=== PATIENT | male | born 1945 | race African-American/Black ===

== ENCOUNTER 2017-03-10 13:01 | Emergency (ER) | payer MEDICARE, MEDICAID ==
[~2017-03-10] VITALS: Ht 167.6 cm; Wt 75.0 kg
[~2017-03-10 13:01] MED LIST: AMLO5TAB4 PO; ASPI81TA2 PO; ATOR10TA69 PO; CLON0.1T14 PO; LISI-604 PO
[2017-03-10] MEDS ORDERED: HYDROCODONE/ACETAMINOPHEN 5/325MG TABLET PO ONE (15:45)
[2017-03-10 16:04] LABS: CLARITY URINE CLOUDY (CLEAR); COLOR URINE DARK YELLOW (YELLOW); GLUCOSE URINE NEGATIVE (NEGATIVE); KETONES URINE TRACE (NEGATIVE); LEUKOCYTE ESTERASE URINE 2+ (NEGATIVE); NITRITE URINE NEGATIVE (NEGATIVE); OCCULT BLOOD URINE 2+ (NEGATIVE); PH URINE 5.5 (4.5-8.0); PROTEIN URINE 2+ (NEGATIVE); SPECIFIC GRAVITY URINE 1.024 (1.005-1.030)
[2017-03-10 16:08] LABS: BASOPHILS % 0.5 % (0.0-2.0); EOSINOPHILS % 0.5 % (0.0-5.0); HEMATOCRIT. 50.7 % (42.0-52.0); HEMOGLOBIN. 16.8 g/dL (14.0-18.0); LYMPHOCYTES % 8.9 % (20.0-50.0); MEAN CORPUSCULAR VOLUME 90.8 fL (80.0-94.0); MEAN PLATELET VOLUME 8.4 fl (7.4-10.4); MONOCYTES % 6.7 % (2.0-8.0); NEUTROPHILS % 83.4 % (40.0-76.0); PLATELET 396 x1000/uL (130-400); RED BLOOD CELL COUNT 5.59 mill/uL (4.7-6.1); RED CELL DISTRIBUTION WIDTH 14.4 % (11.6-14.6)
[2017-03-10 16:12] LABS: CHLORIDE 103 mEq/L (98-107)
[2017-03-10 16:18] LABS: CARBON DIOXIDE 29 mEq/L (21-32)
[2017-03-10] MEDS ORDERED: AZITHROMYCIN 500 MG in DEXT 5% WATER 250 ML IV STA (17:12)
[2017-03-10] MEDS ORDERED: DOXYCYCLINE HYCLATE 100 MG/VIAL IV ONE (17:15)
[2017-03-10] MEDS ORDERED: CEFTRIAXONE 1 G PREMIX 50 ML IV ONE (17:15)
[2017-03-10] MEDS: DOXYCYCLINE 100MG in DEXTROSE 5% WATER 100ML IV NR ×2 (18:30→18:35)
[2017-03-10 21:15] VITALS: BP 128/88
[2017-03-14 04:44] LABS: CHLAMYDIA TRACHOMATIS NAA Negative (Negative); NEISSERIA GONORRHOEAE NAA Negative (Negative)
== END 2017-03-10 21:31 | disposition short-term general hospital (02) ==
LOC: ER 13:03
DX: N45.3 Epididymo-orchitis (principal); N45.4 Abscess of epididymis or testis; N43.3 Hydrocele, unspecified; N50.89 Other specified disorders of the male genital organs; I25.10 Atherosclerotic heart disease of native coronary artery without angina pectoris; I10 Essential (primary) hypertension; E78.00 Pure hypercholesterolemia, unspecified; F17.210 Nicotine dependence, cigarettes, uncomplicated; Z79.82 Long term (current) use of aspirin
CPT/HCPCS: 36415; 76870; 80048; 81001; 85025; 87491; 87591; 93976; 96365; 96367; 99285; J0456; J0696; J3490; J7030; J7060

== ENCOUNTER 2017-04-09 10:56 | Emergency (ER) | payer MEDICARE, MEDICAID ==
[~2017-04-09] VITALS: Ht 167.6 cm; Wt 75.0 kg
[~2017-04-09 10:56] MED LIST changes: +ASPI-1160 PO; -ASPI81TA2 PO
[2017-04-09] MEDS ORDERED: LEVOFLOXACIN 250MG TABLET PO ONE (11:30)
[2017-04-09 11:52] VITALS: BP 156/67
== END 2017-04-09 17:39 | disposition home or self-care (01) ==
LOC: ER 16:36
DX: N45.3 Epididymo-orchitis (principal); F17.200 Nicotine dependence, unspecified, uncomplicated; I10 Essential (primary) hypertension; E78.00 Pure hypercholesterolemia, unspecified; I51.9 Heart disease, unspecified; Z79.82 Long term (current) use of aspirin
CPT/HCPCS: 99283

== ENCOUNTER 2017-05-22 10:48 | Emergency (ER) | payer MEDICARE, MEDICAID ==
[~2017-05-22] VITALS: Ht 172.7 cm; Wt 89.0 kg
[2017-05-22 10:56] VITALS: BP 151/96
== END 2017-05-22 15:00 | disposition home or self-care (01) ==
LOC: ER 10:48
DX: R49.0 Dysphonia (principal); J02.9 Acute pharyngitis, unspecified; F17.200 Nicotine dependence, unspecified, uncomplicated; I10 Essential (primary) hypertension; E78.00 Pure hypercholesterolemia, unspecified; Z79.82 Long term (current) use of aspirin
CPT/HCPCS: 99282